=== PATIENT | male | born 1930 | race Caucasian/White ===

== ENCOUNTER 2017-02-13 13:59 | Inpatient (IN) ==
--- NOTE | 2017-02-13 14:28 | Emergency Department Note ---
Disposition Clinical Impression: Acute on chronic systolic CHF (congestive heart failure), NYHA class 3 COPD (chronic obstructive pulmonary disease) Qualifiers: COPD type: unspecified COPD Qualified Code(s): J44.9 - Chronic obstructive pulmonary disease, unspecified Disposition: Admitted As Inpatient Condition: Fair SOB HPI - General Chief Complaint: ED Shortness of Breath/Dyspnea Stated Complaint: Difficulty Breathing Time Seen by Provider: 02/13/17 14:27 Source: patient, EMS Mode of arrival: private vehicle Limitations: no limitations Nursing Notes Reviewed: Yes Vital Signs Reviewed: Yes - History of Present Illness Patient presents to the ED complaining of worsening shortness of breath and lower extremity edema. He was recently discharged from [facility] after an admission from 01/29-02/01 for a CHF exacerbation after presenting to this ED with similar symptoms. States he is always short of breath but it has been worsening over the past 2 weeks. States he noticed his lower extremity swelling was worse this morning as well. He has had an intermittent cough productive of white phlegm for several months. States his cough has not recently changed. He denies any sore throat, sneezing, nasal congestion or rhinorrhea. Denies any chest pain. He does report feeling intermittently hot and cold. No fever recorded at home. No abdominal pain, nausea, vomiting or diarrhea. He does report chronic constipation. States he has been compliant with all of his medications including duonebs at home every 4-6 hours. States he did use his nebulizer treatment this morning. He has home oxygen which he has been requiring intermittently for quite some time. States he has been wearing it approximately 85% of the time over the past 2 weeks. States he is sometimes able to sleep flat but other times sleeps in a recliner. He has had PND in the past but not recently. Since his last admission he has had a blood transfusion on February 06 of 2 units for worsening of his chronic anemia. Denies any blood in his stools or vomit. He is a [id number] smoker. EMS states that he had diffuse wheezing on their exam so they gave a duoneb treatment, 125 mg of IV Solu-Medrol and 40 mg of IV Lasix en route to the ED. On arrival here he had oxygen saturation of 95% on room air. - Related Data Home Medications Medication Instructions Recorded Confirmed Aspirin 81 mg PO DAILY 02/11/15 02/13/17 Docusate [Colace] 200 mg PO DAILY 02/11/15 02/13/17 Ipratropium/Albuterol Neb [Duoneb] 3 ml IH Q4H PRN 02/11/15 02/13/17 Metoprolol XL (24 HR) Succ [Toprol 50 mg PO DAILY 02/11/15 02/13/17 XL] Nitroglycerin [Nitrostat] 0.4 mg SL PRN PRN 02/11/15 02/13/17 Clopidogrel [Plavix] 75 mg PO DAILY 04/18/16 02/13/17 Doxazosin [Cardura] 1 mg PO DAILY 04/18/16 02/13/17 Furosemide [Lasix] 40 mg PO DAILY 04/18/16 02/13/17 Isosorbide MONOnitrate (24 HR) 60 mg PO QAM 11/03/16 02/13/17 [Imdur] Pantoprazole Sodium [Protonix] 40 mg PO DAILY 11/03/16 02/13/17 Buspirone HCl [Buspar] 5 mg PO TID 01/30/17 02/13/17 HYDROcodone/Acet 7.5/325 mg [[place] 1 tab PO Q8H PRN 01/30/17 02/13/17 7.5-325 mg] Sucralfate [Carafate] 1 gm PO BID 01/30/17 02/13/17 Temazepam [Restoril] 15 mg PO HS 01/30/17 02/13/17 Previous Rx's Medication Instructions Recorded Albuterol Sulfate [Proair Hfa] 1 puff IH Q4-6H PRN #1 inh 02/22/16 Folic Acid 1 mg PO DAILY #90 tablet 09/23/16 Allergies Allergy/AdvReac Type Severity Reaction Status Date / Time Penicillins Allergy Rash Verified 05/17/16 00:34 morphine AdvReac Anxiety Verified 05/17/16 00:34 Constitutional: Denies: fever, chills, weakness, weight change Eyes: Denies: eye pain, eye discharge, vision change ENT ED: Denies: ear pain, throat pain, dental pain, hearing loss, epistaxis, congestion, dysphagia Cardiovascular: Reports: orthopnea, edema. Denies: chest pain, palpitations, dyspnea on exertion, syncope Respiratory: Reports: cough, sputum production. Denies: dyspnea, wheezes, hemoptysis, stridor Gastrointestinal: Reports: constipation (chronic). Denies: abdominal pain, nausea, vomiting, diarrhea, hematemesis, melena, hematochezia Genitourinary: Denies: urgency, dysuria, frequency, hematuria Musculoskeletal: Denies: back pain, neck pain, arthralgia, myalgia Integumentary: Denies: rash, abrasion, lesions Neurological: Denies: headache, weakness, numbness, paresthesias, confusion, abnormal gait, vertigo Psychiatric: Denies: anxiety, depression, suicidal thoughts, homicidal thoughts , auditory hallucinations, visual hallucinations Endocrine: Denies: fatigue Hematological/Lymphatic: Denies: easy bleeding, easy bruising Allergic/Immunologic: Denies: facial swelling, urticaria Past Medical History - Past Medical History Medical history: Reports: aortic aneurysm, arthritis, COPD, coronary artery disease, DVT, GI bleed, hyperlipidemia, hypertension, renal disease, other Surgical history: Reports: appendectomy, carotid endarterectomy, cholecystectomy , hip replacement, knee replacement, other Psychiatric history: Reports: anxiety - Social History Smoking Status: Current every day smoker Smokeless Tobacco Status: No Alcohol use: Reports: none Drug use: Reports: none Physical Exam - General Limitations: no limitations General appearance: alert, in no apparent distress - Head Head exam: atraumatic, normocephalic, normal inspection - Eye Eye exam: Present: normal appearance, PERRL, EOMI - ENT ENT exam: normal exam, normal oropharynx, mucous membranes moist - Neck Neck exam: Present: normal inspection, full ROM, trachea midline - Chest Chest inspection: Present: normal inspection, symmetric chest wall rise - Respiratory Respiratory exam: Present: wheezes (scattered). Absent: accessory muscle use - Cardiovascular Cardiovascular exam: Present: regular rate, normal rhythm, normal heart sounds - Abdominal Exam Abdominal exam: Present: soft, Non-Tender, normal bowel sounds. Absent: tenderness, distention, guarding, rebound, rigidity - Extremities Exam Extremities exam: Present: normal inspection, full ROM, pedal edema (3+ bilaterally to knees). Absent: tenderness - Back Exam Back exam: Present: normal inspection, full ROM. Absent: tenderness - Neurological Exam Neurological exam: Present: alert, oriented X3 - Psychiatric Psychiatric exam: Present: normal affect, normal mood - Skin Skin exam: Present: warm, dry, intact, normal color Course Course Narrative: Patient presents to the ED complaining of increasing shortness of breath and lower extremity edema. He has known history of advanced systolic heart failure with last EF from October showing an ejection fraction of 20-25% with severe systolic dysfunction according to records. He was just hospitalized 2 weeks ago for CHF exacerbation that was treated with aggressive IV diuresis. On exam he still has wheezing. He is mildly tachypneic with extended talking but can complete sentences. He does have lower extremity pitting edema. Will given additional nebulizer treatment, obtain chest x-ray and labs. EKG shows sinus tachycardia with a left bundle branch block that is unchanged from his last admission. I suspect primarily a CHF exacerbation with also a component of COPD exacerbation. - Reevaluation(s) Reevaluation #1: Chest x-ray again shows small bilateral pleural effusions. Laboratory studies show continued improvement in his hemoglobin is 7.6 compared to 6.5 prior to his last transfusion. Creatinine is slightly improved as well at 1.73 from 1.95. His BNP however is significantly higher 2142 compared to 1358 on last hospitalization. Troponin is elevated at 0.04 but again this is decreased from his last admission when he was 0.11. I feel this likely represents strain from his CHF as he has no chest pain or EKG changes. Patient is feeling slightly better regarding his breathing since his nebulizer treatment. Repeat respiratory exam shows only a few scattered wheezes at this time. Patient is experiencing again a CHF exacerbation and I feel that he would benefit from admission for aggressive IV diuresis. Patient and family updated on plan and are agreeable. Will contact the hospitalist on-call to discuss admission. Reevaluation #2: I spoke to the hospitalist on-call, Dr. Ivory, who has agreed to accept the patient. Time: 17:00 Vital Signs Temperature 98.0 F 02/13/17 14:01 Pulse Rate 102 02/13/17 14:01 Respiratory Rate 16 02/13/17 14:01 Blood Pressure 124/64 02/13/17 14:01 O2 Sat by Pulse Oximetry 96 02/13/17 14:01 Temperature 98.0 F 02/13/17 14:01 Pulse Rate 102 02/13/17 14:01 Respiratory Rate 16 02/13/17 14:01 Blood Pressure 124/64 02/13/17 14:01 O2 Sat by Pulse Oximetry 96 02/13/17 14:01 Oxygen Delivery Oxygen Delivery Room Air Shortness of Breath/Dyspnea - Differential Diagnosis Likely: acute exacerbation of chronic obstructive airways disease, congestive heart failure - Medical Records Medical records reviewed: Yes I reviewed the patient's medical records. - Lab Data Lab results reviewed: Yes I reviewed the patient's lab results. Result diagrams: 02/13/17 15:05 02/13/17 15:05 Lab Results 02/13/17 02/13/17 02/13/17 Range/Units 15:05 15:05 15:05 WBC 5.9 (4.3-11.1) K/mcL RBC 3.12 L (4.19-5.50) M/mcL Hgb 7.6 L (12.9-16.9) g/dL Hct 25.3 L (37.5-50.1) % MCV 81.1 L (83.0-100.0) fL MCH 24.4 L (28.0-33.3) pg MCHC 30.0 L (31.6-35.5) g/dL RDW 17.6 H (11.5-14.5) % Plt Count 185 (140-400) K/mcL MPV 11.2 (9.4-12.4) fL Immature Gran % 0.5 (0-4) % Seg Neutrophils % 85.7 % Lymphocytes % 4.3 % Monocytes % 6.1 % Eosinophils % 2.9 % Basophils % 0.5 % Neutrophils # 5.0 (1.6-8.9) K/mcL Lymphocytes # 0.3 L (0.6-4.6) K/mcL Monocytes # 0.4 (0.0-1.3) K/mcL Eosinophils # 0.2 (0.0-0.6) K/mcL Basophils # 0.0 (0.0-0.2) K/mcL Sodium 139 (136-145) mEq/L Potassium 3.1 L (3.5-4.5) mEq/L Chloride 103 (98-109) mEq/L Carbon Dioxide 21 (19-29) mEq/L BUN 22 (8-26) mg/dL Creatinine 1.73 H (0.72-1.25) mg/dL Est GFR ( Amer) 45 L (> 60) Est GFR (Non-Af Amer) 37 L (> 60) BUN/Creatinine Ratio 13 (6-26) Glucose 136 H (70-99) mg/dL Calculated Osmolality 293 (280-300) Calcium 8.9 (8.6-10.8) mg/dL Troponin I 0.04 H* (0-0.03) ng/mL B-Natriuretic Peptide (0-100) pg/mL 02/13/17 Range/Units 15:05 WBC (4.3-11.1) K/mcL RBC (4.19-5.50) M/mcL Hgb (12.9-16.9) g/dL Hct (37.5-50.1) % MCV (83.0-100.0) fL MCH (28.0-33.3) pg MCHC (31.6-35.5) g/dL RDW (11.5-14.5) % Plt Count (140-400) K/mcL MPV (9.4-12.4) fL Immature Gran % (0-4) % Seg Neutrophils % % Lymphocytes % % Monocytes % % Eosinophils % % Basophils % % Neutrophils # (1.6-8.9) K/mcL Lymphocytes # (0.6-4.6) K/mcL Monocytes # (0.0-1.3) K/mcL Eosinophils # (0.0-0.6) K/mcL Basophils # (0.0-0.2) K/mcL Sodium (136-145) mEq/L Potassium (3.5-4.5) mEq/L Chloride (98-109) mEq/L Carbon Dioxide (19-29) mEq/L BUN (8-26) mg/dL Creatinine (0.72-1.25) mg/dL Est GFR ( Amer) (> 60) Est GFR (Non-Af Amer) (> 60) BUN/Creatinine Ratio (6-26) Glucose (70-99) mg/dL Calculated Osmolality (280-300) Calcium (8.6-10.8) mg/dL Troponin I (0-0.03) ng/mL B-Natriuretic Peptide 2142 H (0-100) pg/mL - Radiology Data Radiology results reviewed: Yes I reviewed the patient's radiology results. - EKG Data EKG attestation: Yes I reviewed and interpreted this EKG. EKG shows normal: Reports: sinus rhythm Rate: Reports: tachycardia Rhythm: Reports: NSR [place]/QRS: Reports: LBBB Interpretation: Reports: no acute changes, unchanged when compared to prior tracing (date) (01/29/17)
[2017-02-13] MEDS ORDERED: Ipratropium/Albuterol Neb 3 ML IH ONE (14:52)
[2017-02-13 15:15] LABS: Basophils % 0.5 %; Eosinophils # 0.2 K/mcL (0.0-0.6); Eosinophils % 2.9 %; Hematocrit 25.3 % (37.5-50.1); Hemoglobin 7.6 g/dL (12.9-16.9); Immature Granulocytes % 0.5 % (0-4); Lymphocytes # 0.3 K/mcL (0.6-4.6); Lymphocytes % 4.3 %; Mean Corpuscular Hemoglobin 24.4 pg (28.0-33.3); Mean Corpuscular Volume 81.1 fL (83.0-100.0); Mean Platelet Volume 11.2 fL (9.4-12.4); Monocytes # 0.4 K/mcL (0.0-1.3); Monocytes % 6.1 %; Platelet Count 185 K/mcL (140-400); Red Blood Count 3.12 M/mcL (4.19-5.50); Red Cell Distribution Width 17.6 % (11.5-14.5); Segmented Neutrophils % 85.7 %
[2017-02-13 15:25] LABS: Calcium 8.9 mg/dL (8.6-10.8); Potassium 3.1 mEq/L (3.5-4.5)
[2017-02-13] MEDS ORDERED: Naloxone 0.4 MG/ML INJ IVP PRN ×2 (16:48→17:27)
[2017-02-13] MEDS ORDERED: Nitroglycerin 0.4 MG TAB.SUBL SL PRN (17:27)
[2017-02-13] MEDS: *HR* HYDROcodone/Acet 7.5/325 mg TABLET PO PRN (18:07)
[2017-02-13] MEDS: Sucralfate 1 GM TABLET PO SCH (19:52)
--- NOTE | 2017-02-13 20:40 | Internal Med History&Physical ---
Date of Encounter: 02/13/17 Time of Encounter: 20:40 Assessment and Plan (1) Acute congestive heart failure Current visit: Yes Status: Acute Patient has acute congestive heart failure with a prior history of paroxysmal atrial fibrillation and ischemic cardiopathy and multiple atherosclerotic vascular problems. His BNP is elevated above baseline. Chest ray shows congestive heart failure pattern. Troponin is chronically elevated. It is doubtful that he has had an acute NM. We will continue with diuresis, oxygen and supportive care. He is a DNR CCA, no intubation, CPR or defibrillation. Since this is his second hospital admission and past 12 days, and he failed outpatient treatment in the emergency room, felt improvement with blood transfusion as an outpatient, I would like to admit him to a full inpatient admission because I do not feel that he will be able to be discharged in the next 48 hours. We are nearing the first midnight and most likely he will be here 3-4 midnights. Qualifiers: Congestive heart failure type: combined Qualified Code(s): I50.41 - Acute combined systolic (congestive) and diastolic (congestive) heart failure (2) History of ischemic cardiomyopathy Current visit: Yes Status: Acute As above. Not a candidate for further intervention or surgery. Ranexa has been suggested in the past but he cannot afford that. (3) Acute exacerbation of chronic obstructive pulmonary disease (COPD) Current visit: Yes Status: Acute Acute exacerbation of his chronic COPD. He also continues to smoke a pack of cigarettes per day. He was given Solu-Medrol in the field. We will continue with nebulizer treatments and Solu-Medrol. He is not to have intubation. (4) Chronic blood loss anemia Current visit: Yes Status: Acute History history of chronic anemia and likely of GI source. He apparently has a history of angiodysplasia changes in his cecum. His current count is appropriate and will follow (5) Angiodysplasia of cecum Current visit: Yes Status: Acute (6) Chronic kidney disease Current visit: No Status: Chronic Chronic kidney disease and avoiding NSAIDs. His creatinine and kidney function today is actually improved. Continue to monitor. Qualifiers: Chronic kidney disease stage: stage 3 (moderate) Qualified Code(s): N18.3 - Chronic kidney disease, stage 3 (moderate) (7) CAD (coronary artery disease) Current visit: No Status: Chronic History of coronary artery disease and at this point not a candidate for intervention surgically. It is doubtful that he has had an acute NM. Qualifiers: Coronary Disease-Associated Artery/Lesion type: [place] artery [place] vs. transplanted heart: [place] heart Associated angina: with stable angina Qualified Code(s): I25.118 - Atherosclerotic heart disease of [place] coronary artery with other forms of angina pectoris (8) Elevated troponin Current visit: No Status: Acute Chronically elevated troponin. Likely from chronic renal disease. (9) Smoker Current visit: No Status: Acute Continues to smoke a pack answers per day. He will not have any in the hospital. Tobacco cessation has again been discussed. (10) DVT prophylaxis Current visit: No Status: Acute He is not a good candidate for aggressive anticoagulation because of his history of recurring anemia and GI bleed problems. We will try to incorporate sequential compression devices, RAYSHAWN hose and frequent and early ambulation Internal Medicine - H&P: HPI Chief complaint: "I could not stop coughing" Admitted From: Emergency Dept Plans for Post Hospital Care: Home History of present illness: Mr. Knowles is a 87 year old male with known history of triple-vessel disease, extensive peripheral basilar disease, cardiomyopathy with ejection fraction 20- 30% was seen in the emergency room for evaluation of cough and dyspnea. His found to have an elevated BNP over 1999, chest x-ray consistent with congestive heart failure and chronicly elevated troponin. He was given Solu-Medrol and breathing treatment in the field by the squad. Patient states that his biggest complaint is coughing and shortness of breath. He states basically it is dry and occasionally some white sputum is produced. Never any blood. He does continue to smoke a pack cigarettes per day as he has for 72 years. He denies any cardiac type chest pain, palpitations or irregular heartbeat sensation. He states he is not sure that he ever got better when he was discharged from [place] just 12 days ago on 02/01/17. He was treated as an outpatient for anemia with a unit of blood just under a week ago. He has a history of chronic recurring anemia likely from GI source. He has been having swelling in his lower extremities, the left worse than the right. He has been sitting in the recliner all night long because cannot lie down flat because of dyspnea as well as arm and shoulder pain. After admission his biggest complaint is continued cough and dry throat. He denies a cardiac type chest pain or palpitations. Past Med Surg Social Fam HX - Past Medical History Medical history: aortic aneurysm, arthritis, atrial fibrillation (Paroxysmal atrial fibrillation), cardiomyopathy (Ischemic cardiomyopathy with ejection fraction 20-30%), CHF (History of congestive heart failure reportedly in the past), COPD, coronary artery disease, DVT, GI bleed (He has chronic anemia and recurring episodes requiring transfusions), hyperlipidemia, hypertension, renal disease, other Psychiatric history: anxiety - Past Surgical History Surgical History: appendectomy, carotid endarterectomy (Right carotid endarterectomy), cholecystectomy, hip replacement, knee replacement, LE Bypass, vascular surgery (Abdominal aortic aneurysm repair, bilateral carotid endarterectomies, aortofemoral bypass surgeries) - Social History Smoking Status: Current every day smoker Packs per day: 1 pack per day, he has smoked since age 15 therefore 70 years Smokeless Tobacco Status: No Alcohol use: none Drug use: none Occupational status: previously employed (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) Activity Level: Independent ambulation Recent Out of Country Travel Within the Last 8 Weeks: No Exposure or Possible Exposure to Illness During Travel: No - Family History Father Twin of Family Member: Yes, Fraternal Living Status: Age at : 72 Cause of : Lung disease, diabetes and cancer Hx Family Cardiac Disorders: Yes Hx Family Respiratory Disorders: Yes Hx Family Cancer: Yes Hx Family GI Disorders: No Hx Family Endocrine Disorder: No Hx Family Neuromuscular Disorders: No Hx Family Neurologic Disorders: No Hx Family HEENT Disorders: No Hx Family Autoimmune Disorders: No Mother Living Status: Age at : 99 Cause of : Hypertension and cancer Internal Medicine - H&P: Meds Aspirin 81 mg PO DAILY 02/11/15 [History] Docusate [Colace] 200 mg PO DAILY 02/11/15 [History] Ipratropium/Albuterol Neb [Duoneb] 3 ml IH Q4H PRN 02/11/15 [History] Metoprolol XL (24 HR) Succ [Toprol XL] 50 mg PO DAILY 02/11/15 [History] Nitroglycerin [Nitrostat] 0.4 mg SL PRN PRN 02/11/15 [History] Albuterol Sulfate [Proair Hfa] 1 puff IH Q4-6H PRN #1 inh 02/22/16 [Rx] Clopidogrel [Plavix] 75 mg PO DAILY 04/18/16 [History] Doxazosin [Cardura] 1 mg PO DAILY 04/18/16 [History] Furosemide [Lasix] 40 mg PO DAILY 04/18/16 [History] Folic Acid 1 mg PO DAILY #90 tablet 09/23/16 [Rx] Isosorbide MONOnitrate (24 HR) [Imdur] 60 mg PO QAM 11/03/16 [History] Pantoprazole Sodium [Protonix] 40 mg PO DAILY 11/03/16 [History] Buspirone HCl [Buspar] 5 mg PO TID 01/30/17 [History] HYDROcodone/Acet 7.5/325 mg [[place] 7.5-325 mg] 1 tab PO Q8H PRN 01/30/17 [ History] Sucralfate [Carafate] 1 gm PO BID 01/30/17 [History] Allergies Penicillins Allergy (Verified 05/17/16 00:34) Rash morphine Adverse Reaction (Verified 05/17/16 00:34) Anxiety - Constitutional Constitutional: lethargy, weakness, no chills, no excessive sweating, no fever(s ), no falls - EENT Eyes: no change in vision, no loss of vision Ears: decreased hearing (He is hard of hearing chronically), no ear discharge, no ear pain Nose, mouth and throat: dry mouth, sore throat, no mouth lesions, no neck mass - Cardiovascular Cardiovascular ROS IM: dyspnea, dyspnea on exertion, orthopnea, no chest pain, no irregular heart rhythm, no lightheadedness - Respiratory Respiratory: dyspnea on exertion, wheezing, chest congestion, excessive phlegm production, no hemoptysis, no pain on inspiration - Gastrointestinal Gastrointestinal: no change in bowel habits, no change in stool character, no constipation, no diarrhea, no hematochezia, no melena, no nausea, no vomiting - Genitourinary Genitourinary ROS male: urinary hesitancy, no urinary incontinence, no urinary urgency - Musculoskeletal Additional comments: His biggest musculoskeletal complaint is pain starting in the palm of his right hand going up to his anterior shoulder. He thinks is from carpal tunnel syndrome and he has had surgery before. He has had right shoulder replacement in the past. - Neurological Neurological ROS: confusion (He had confusion during his last hospitalization at [place]), paresthesias (Review of her Coumadin from the palm to the shoulder), no dizziness, no focal weakness, no frequent falls - Psychiatric Psychiatric: no hallucinations, no suicidal ideation - Constitutional Vitals: Temp Pulse Resp BP Pulse Ox 97.5 F L 112 18 119/67 96 02/13/17 18:50 02/13/17 18:50 02/13/17 18:50 02/13/17 18:50 02/13/17 18:50 General appearance: Present: cachectic, A&O X 3, answers questions appropriately Exam: Patient in moderate distress. Recurring cough and has audible wheezing. Sits forward in tripod positioning. - Eye Eye exam: Present: EOMI. Absent: scleral icterus - ENT ENT exam: Present: mucous membranes moist, TM's normal bilaterally (Right ear canal obscured with cerumen). Absent: normal exam (Upper plate of dentures. None below.) - Neck Neck exam general surgery: Absent: lymphadenopathy, tenderness, nuchal rigidity , thyromegaly Additional comments: No JVD. Cannot appreciate bruits. - Respiratory Additional comments: Diffuse inspiratory and expiratory wheezes. No localization or crackles. He is sitting forward to breathe. Audible expiratory wheezes heard - Cardiovascular Cardiovascular exam: Present: distant heart sounds, RRR, +S1, +S2. Absent: systolic murmur - GI/Abdominal GI/Abdominal exam: Present: soft, no peritoneal signs. Absent: mass, tenderness - Extremities Exam Additional comments: Edema of lower extremities, indentation at the top of the sock line. Slowed capillary refill. Adequate posterior tibial pulses. History of extremely tender over the right anterior and lateral shoulder area. He has pain if he touches the proximal palmar area of the right wrist with excruciating pain that radiates to her shoulder - Back Exam Back exam: Absent: vertebral tenderness - Neurological Exam Neurological exam: Present: alert, CN II-XII intact (Except he is hard of hearing), oriented X3, strengths equal and symetr throughout (As examined in bed ) Internal Med - H&P Results - Labs CBC & Chem 7: 02/13/17 15:05 02/13/17 15:05 Labs: Labs have been evaluated. He has chronic kidney disease with elevated creatinine. Chronically elevated troponin. Hemoglobin is chronically diminished, actually improved from his recent transfusion. Elevated BNP over 1999 - EKG Data EKG comments: 02/13/17 22:12 EKG shows left bundle-branch block, left axis deviation. In sinus rhythm. - Diagnostic Studies Chest x-ray Additional comments: Chest x-ray shows signs of increased pulmonary vasculature particularly in the lower lobes, left worse than the right. Some cephalization as well - VTE Reasons for not Prescribing Prophylaxis: Treatment not Indicated - Low risk for VTE
--- NOTE | 2017-02-13 20:56 | Electrocardiograph Report ---
[place] [id number] Test Date: 2017-02-13 Pat Name: CRISTA OCAMPO Department: 2000 Room: 115 Gender: Male Rn Transport: ER1 : 1930 Requested By: Amber Anthony Order Number: [id number] Reading MD: Adrian Joshi MD Measurements Intervals [place] Rate: 104 P: 26 MD: 145 QRS: -19 QRSD: 153 T: 133 QT: 394 QTc: 455 Interpretive Statements SINUS TACHYCARDIA LEFT BUNDLE BRANCH BLOCK Electronically Signed On 02-13-2017 20:54:44 EDT by Adrian Joshi MD
[2017-02-13] MEDS ORDERED: Temazepam 15 MG CAPSULE PO SCH (21:00)
[2017-02-14] MEDS: Ipratropium/Albuterol Neb 3 ML IH PRN ×4 (04:40→21:35)
[2017-02-14] MEDS: *HR* HYDROcodone/Acet 7.5/325 mg TABLET PO PRN ×3 (04:40→23:54)
[2017-02-14 05:38] LABS: Basophils % 0.2 %; Hematocrit 24.3 % (37.5-50.1); Hemoglobin 7.3 g/dL (12.9-16.9); Immature Granulocytes % 0.5 % (0-4); Lymphocytes # 0.3 K/mcL (0.6-4.6); Lymphocytes % 6.3 %; Mean Corpuscular Hemoglobin 24.7 pg (28.0-33.3); Mean Corpuscular Volume 82.1 fL (83.0-100.0); Mean Platelet Volume 11.3 fL (9.4-12.4); Monocytes # 0.2 K/mcL (0.0-1.3); Monocytes % 5.3 %; Neutrophils # 3.8 K/mcL (1.6-8.9); Platelet Count 168 K/mcL (140-400); Red Blood Count 2.96 M/mcL (4.19-5.50); Red Cell Distribution Width 17.5 % (11.5-14.5); Segmented Neutrophils % 87.7 %
[2017-02-14 05:49] LABS: Potassium 3.7 mEq/L (3.5-4.5)
--- NOTE | 2017-02-14 06:26 | Internal Med Progress Note ---
Date of Encounter: 02/14/17 Time of Encounter: 06:21 - Assessment and plan (1) Acute congestive heart failure Current Visit: Yes Status: Acute Assessment and plan: His acute congestive heart failure appears improved symptomatically. His troponin is now normal. BNP still elevated as one would expect. Follow-up chest x-ray will be done. Follow-up EKG will be done. Continue diuresis. Qualifiers: Congestive heart failure type: combined Qualified Code(s): I50.41 - Acute combined systolic (congestive) and diastolic (congestive) heart failure (2) History of ischemic cardiomyopathy Current Visit: Yes Status: Acute (3) Acute exacerbation of chronic obstructive pulmonary disease (COPD) Current Visit: Yes Status: Acute Assessment and plan: He thinks that he is improved. Still requiring frequent nebulizer treatments. We will continue IV steroids. Good oxygenation with supplemental oxygen (4) Chronic blood loss anemia Current Visit: Yes Status: Acute Assessment and plan: Continue to monitor his hemoglobin. It is dropped a bit but not to transfusion level. He may need to be transfused earlier if CHF worsens. (5) Angiodysplasia of cecum Current Visit: Yes Status: Acute (6) Chronic kidney disease Current Visit: No Status: Chronic Assessment and plan: Creatinine improved Qualifiers: Chronic kidney disease stage: stage 3 (moderate) Qualified Code(s): N18.3 - Chronic kidney disease, stage 3 (moderate) (7) CAD (coronary artery disease) Current Visit: No Status: Chronic Assessment and plan: No angina. Qualifiers: Coronary Disease-Associated Artery/Lesion type: [place] artery [place] vs. transplanted heart: [place] heart Associated angina: with stable angina Qualified Code(s): I25.118 - Atherosclerotic heart disease of [place] coronary artery with other forms of angina pectoris (8) Elevated troponin Current Visit: No Status: Resolved Assessment and plan: It is now normal. He has a chronically elevated troponin. Do not need to continue monitoring (9) Smoker Current Visit: No Status: Acute (10) DVT prophylaxis Current Visit: Yes Status: Acute Assessment and plan: Continues with SCDs and elastic stockings - Subjective Interval history: Patient states that he did fairly well through the night. He required 2 breathing treatments though which is more than his usual. He says he is starting the day well. He had a replacement of the Lidoderm patch on his right shoulder and he states that is doing a good job now. He denies any cardiac type chest pain, palpitations, no nausea or vomiting. No lower extremity swelling or pain. He thinks his breathing is much better today. - Constitutional Vitals: Temp Pulse Resp BP Pulse Ox 98 F 111 18 107/68 99 02/14/17 04:00 02/14/17 04:00 02/14/17 04:00 02/14/17 04:00 02/14/17 04:00 General appearance: Present: A&O X 3, no acute distress, answers questions appropriately - Respiratory Respiratory exam: Present: decreased breath sounds Additional comments: Scattered intermittent expiratory wheezes. I do not hear the audible wheezing without stethoscope as I did last night. Diminished breath sounds at the bases. No definite crackles. No orthopnea. - GI/Abdominal GI/Abdominal exam: Present: soft, no peritoneal signs. Absent: tenderness - Extremities Exam Extremities exam: Absent: calf tenderness, pedal edema, tenderness Additional comments: He has his SCDs on. Elastic stockings in place. No calf tenderness. No edema noted. His right shoulder is nontender on gentle palpation today. Internal Medicine: Result - Labs CBC & Chem 7: 02/14/17 05:20 02/14/17 05:20 Labs: Short CBC 02/14/17 Range/Units 05:20 WBC 4.3 (4.3-11.1) K/mcL Hgb 7.3 L (12.9-16.9) g/dL Hct 24.3 L (37.5-50.1) % Plt Count 168 (140-400) K/mcL Neutrophils # 3.8 (1.6-8.9) K/mcL BMP 02/14/17 05:20 Sodium 140 Potassium 3.7 Chloride 103 Carbon Dioxide 21 BUN 24 Creatinine 1.67 H Glucose 131 H Calcium 9.0 Cardiac Enzymes 02/14/17 Range/Units 05:20 Troponin I 0.03 (0-0.03) ng/mL His white blood cell count is normal. His hemoglobin is down a bit to 7.3. History of troponin is normal range now. Creatinine improved. - VTE Reasons for not Prescribing Prophylaxis: Treatment not Indicated - Low risk for VTE Consult Discharge Plan - Plan Referrals: Esvin Combs CNP [Primary Care Provider] -
[2017-02-14] MEDS: Isosorbide MONOnitrate (24 HR) 60 MG TAB.ER.24H PO SCH (08:59)
[2017-02-14] MEDS: Aspirin 81 MG TAB.CHEW PO SCH (08:59)
[2017-02-14] MEDS: methylPREDNISolone 125 MG/2 ML VIAL IVP SCH ×3 (08:59→23:54)
[2017-02-14] MEDS: Folic Acid 1 MG TABLET PO SCH (09:00)
[2017-02-14] MEDS: Pregabalin 50 MG CAPSULE PO SCH ×2 (09:00→21:34)
[2017-02-14] MEDS: Sucralfate 1 GM TABLET PO SCH ×2 (09:00→21:34)
[2017-02-14] MEDS: Metoprolol XL (24 HR) Succ 50 MG TAB.ER.24H PO SCH (09:00)
--- NOTE | 2017-02-14 16:04 | Electrocardiograph Report ---
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
--- NOTE | 2017-02-14 16:18 | Event Note ---
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 He continues to do well. He says is much improved. His breathing is better. He asked about using prednisone as he has before, I told him he is getting IV Solu-Medrol which is the same type of medication. He denies a cardiac type chest pain. His breathing is better. He denies any aches or pains other than intermittent right upper extremity "shooting" transient somewhat positional pains as he has had previously. His lungs show diminished breath sounds, intermittent end expiratory wheeze, snoring type respirations at the lower bases. His chest x-ray looks improved especially the right base. His labs look stable except his hemoglobin went from 7.7 down to 7.3. He does not have audible wheezing now. He is talkative and in no distress. His son Brady and other family members are present. We talked about his poor prognosis, his cardiac disease, his respiratory disease and his continued smoking. We talked about expectations for the future as well. He is happy that the patches help his shoulder pain, but he states it only lasts 4-6 hours. He is talking about his [place] type patches. 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 I told him to leave on for 12 hours, then take it off for 12 hours. He can use his own patches OTC when necessary as well. I also have started Lalit to see if that will help his pain which appears to be neuropathic.
[2017-02-14] MEDS: Furosemide 40 MG/4 ML VIAL IVP SCH (16:32)
[2017-02-15] MEDS: Ipratropium/Albuterol Neb 3 ML IH PRN ×3 (04:45→22:41)
[2017-02-15 05:25] LABS: Hematocrit 25.3 % (37.5-50.1); Hemoglobin 7.5 g/dL (12.9-16.9); Immature Granulocytes % 0.8 % (0-4); Lymphocytes # 0.2 K/mcL (0.6-4.6); Lymphocytes % 4.6 %; Mean Corpuscular HGB Conc 29.6 g/dL (31.6-35.5); Mean Corpuscular Volume 80.8 fL (83.0-100.0); Mean Platelet Volume 11.6 fL (9.4-12.4); Monocytes # 0.1 K/mcL (0.0-1.3); Monocytes % 2.1 %; Neutrophils # 4.8 K/mcL (1.6-8.9); Platelet Count 179 K/mcL (140-400); Red Blood Count 3.13 M/mcL (4.19-5.50); Red Cell Distribution Width 17.6 % (11.5-14.5); Segmented Neutrophils % 92.5 %
[2017-02-15 05:34] LABS: Calcium 9.3 mg/dL (8.6-10.8); Potassium 4.1 mEq/L (3.5-4.5)
[2017-02-15] MEDS: *HR* HYDROcodone/Acet 7.5/325 mg TABLET PO PRN ×2 (08:01→18:45)
[2017-02-15] MEDS: Sucralfate 1 GM TABLET PO SCH ×2 (08:01→22:41)
[2017-02-15] MEDS: Aspirin 81 MG TAB.CHEW PO SCH (08:01)
[2017-02-15] MEDS: Folic Acid 1 MG TABLET PO SCH (08:01)
[2017-02-15] MEDS: Isosorbide MONOnitrate (24 HR) 60 MG TAB.ER.24H PO SCH (08:01)
[2017-02-15] MEDS: Metoprolol XL (24 HR) Succ 50 MG TAB.ER.24H PO SCH (08:02)
[2017-02-15] MEDS: Pregabalin 50 MG CAPSULE PO SCH ×2 (08:08→22:41)
[2017-02-15] MEDS: methylPREDNISolone 125 MG/2 ML VIAL IVP SCH ×2 (08:43→17:18)
[2017-02-15] MEDS: Furosemide 40 MG/4 ML VIAL IVP SCH ×2 (08:43→17:18)
--- NOTE | 2017-02-15 13:15 | Internal Med Progress Note ---
Date of Encounter: 02/15/17 Time of Encounter: 13:13 - Assessment and plan (1) Acute congestive heart failure Current Visit: Yes Status: Acute Assessment and plan: Clinically he is showing improvement. Less dyspnea, pulmonary status improved. No lower extremity edema. His weight has not come down. His BNP has peaked and is coming down. Continue same treatment. Increase activity level. Qualifiers: Congestive heart failure type: combined Qualified Code(s): I50.41 - Acute combined systolic (congestive) and diastolic (congestive) heart failure (2) History of ischemic cardiomyopathy Current Visit: Yes Status: Acute Assessment and plan: No angina. CHF improved. (3) Acute exacerbation of chronic obstructive pulmonary disease (COPD) Current Visit: Yes Status: Acute Assessment and plan: Prominent status appears to be improving. No audible wheezing now. On auscultation he has no significant wheezing. No orthopnea. We will try to increase his level of activity. He still gets some dyspnea when going to the toilet. Weaning the IV Solu-Medrol. (4) Chronic blood loss anemia Current Visit: Yes Status: Acute Assessment and plan: Hemoglobin is up just a bit. No obvious bleeding. (5) Angiodysplasia of cecum Current Visit: Yes Status: Acute (6) Chronic kidney disease Current Visit: No Status: Chronic Assessment and plan: His creatinine bumped up a bit. This is likely from his IV Lasix. We will follow. Qualifiers: Chronic kidney disease stage: stage 3 (moderate) Qualified Code(s): N18.3 - Chronic kidney disease, stage 3 (moderate) (7) CAD (coronary artery disease) Current Visit: No Status: Chronic Assessment and plan: No angina. Qualifiers: Coronary Disease-Associated Artery/Lesion type: [place] artery [place] vs. transplanted heart: [place] heart Associated angina: with stable angina Qualified Code(s): I25.118 - Atherosclerotic heart disease of [place] coronary artery with other forms of angina pectoris (8) Smoker Current Visit: No Status: Acute Assessment and plan: Offered nicotine patch. (9) DVT prophylaxis Current Visit: Yes Status: Acute - Subjective Interval history: Patient thinks that he is getting better. He denies any cardiac type chest pain. He states he still gets short of breath, but when he was asleep he was almost supine and I witnessed no respiratory problem. He still complains of the right periscapular/shoulder tender areas and intermittent shooting pains that seem to be positional. He does gets some short of breath when getting up to the toilet. O2 saturation 100% at 3 L. He had some dyspnea last night required increased oxygen supplement - Constitutional Vitals: Temp Pulse Resp BP Pulse Ox 97.6 F 96 16 106/74 100 02/15/17 11:00 02/15/17 11:00 02/15/17 11:00 02/15/17 11:00 02/15/17 11:00 General appearance: Present: A&O X 3, no acute distress, answers questions appropriately - Respiratory Additional comments: Diminished breath sounds throughout. Few snoring type respirations in the bases. No audible wheezing heard. No respiratory distress. No cough. - Cardiovascular Cardiovascular exam: Present: distant heart sounds, RRR, +S1, +S2. Absent: systolic murmur - GI/Abdominal GI/Abdominal exam: Present: soft. Absent: tenderness - Extremities Exam Extremities exam: Absent: calf tenderness, pedal edema Additional comments: SCDs are in place. Elastic stockings in place Internal Medicine: Result - Labs CBC & Chem 7: 02/15/17 05:05 02/15/17 05:05 Labs: Short CBC 02/15/17 Range/Units 05:05 WBC 5.2 (4.3-11.1) K/mcL Hgb 7.5 L (12.9-16.9) g/dL Hct 25.3 L (37.5-50.1) % Plt Count 179 (140-400) K/mcL Neutrophils # 4.8 (1.6-8.9) K/mcL BMP 02/15/17 05:05 Sodium 138 Potassium 4.1 Chloride 102 Carbon Dioxide 22 BUN 37 H D Creatinine 1.93 H Glucose 123 H Calcium 9.3 hemoglobin is up a little bit. Creatinine is up a little bit - VTE Reasons for not Prescribing Prophylaxis: Treatment not Indicated - Low risk for VTE Consult Discharge Plan - Plan Referrals: Esvin Combs CNP [Primary Care Provider] -
[2017-02-16] MEDS: *HR* HYDROcodone/Acet 7.5/325 mg TABLET PO PRN ×3 (02:51→23:27)
[2017-02-16] MEDS: Ipratropium/Albuterol Neb 3 ML IH PRN ×4 (02:51→22:36)
[2017-02-16 05:30] LABS: Hematocrit 23.8 % (37.5-50.1); Hemoglobin 7.3 g/dL (12.9-16.9); Immature Granulocytes % 0.9 % (0-4); Lymphocytes # 0.1 K/mcL (0.6-4.6); Lymphocytes % 1.8 %; Mean Corpuscular HGB Conc 30.7 g/dL (31.6-35.5); Mean Corpuscular Hemoglobin 24.5 pg (28.0-33.3); Mean Corpuscular Volume 79.9 fL (83.0-100.0); Mean Platelet Volume 11.5 fL (9.4-12.4); Monocytes # 0.3 K/mcL (0.0-1.3); Monocytes % 3.5 %; Neutrophils # 7.3 K/mcL (1.6-8.9); Platelet Count 171 K/mcL (140-400); Red Blood Count 2.98 M/mcL (4.19-5.50); Red Cell Distribution Width 17.9 % (11.5-14.5); Segmented Neutrophils % 93.8 %
[2017-02-16 05:39] LABS: Potassium 3.6 mEq/L (3.5-4.5)
[2017-02-16 05:47] LABS: Anisocytosis 1+ (Not Present); Platelet Estimate Normal (Normal); Poikilocytosis 1+ (Not Present)
[2017-02-16] MEDS: methylPREDNISolone 125 MG/2 ML VIAL IVP SCH (06:43)
[2017-02-16] MEDS: Furosemide 40 MG/4 ML VIAL IVP SCH (09:30)
[2017-02-16] MEDS: Isosorbide MONOnitrate (24 HR) 60 MG TAB.ER.24H PO SCH (09:30)
[2017-02-16] MEDS: Aspirin 81 MG TAB.CHEW PO SCH (09:30)
[2017-02-16] MEDS: Folic Acid 1 MG TABLET PO SCH (09:30)
[2017-02-16] MEDS: Sucralfate 1 GM TABLET PO SCH ×2 (09:30→22:36)
[2017-02-16] MEDS: Pregabalin 50 MG CAPSULE PO SCH ×2 (09:30→22:36)
[2017-02-16] MEDS: Metoprolol XL (24 HR) Succ 50 MG TAB.ER.24H PO SCH (09:30)
--- NOTE | 2017-02-16 12:34 | Internal Med Progress Note ---
Date of Encounter: 02/16/17 Time of Encounter: 12:32 - Assessment and plan (1) Acute congestive heart failure Current Visit: Yes Status: Acute Assessment and plan: Clinically and symptomatically he is improving. Lungs are more clear. No ankle edema. No significant dyspnea. We will back him down from his IV Lasix to by mouth to see if that holds him so he can go home soon. Also, his creatinine going up, we need to decrease his diuresis. Qualifiers: Congestive heart failure type: combined Qualified Code(s): I50.41 - Acute combined systolic (congestive) and diastolic (congestive) heart failure (2) History of ischemic cardiomyopathy Current Visit: Yes Status: Acute Assessment and plan: No angina. CHF improved. (3) Acute exacerbation of chronic obstructive pulmonary disease (COPD) Current Visit: Yes Status: Acute Assessment and plan: No audible wheezing. Respirations are easier. No coughing presently. Continue current treatment. Decreasing his IV Solu-Medrol. (4) Chronic blood loss anemia Current Visit: Yes Status: Acute Assessment and plan: Hemoglobin is staying in the mid 7 g range and will follow. No active bleeding noted. (5) Angiodysplasia of cecum Current Visit: Yes Status: Acute (6) Chronic kidney disease Current Visit: No Status: Chronic Assessment and plan: Acute kidney injury from overdiuresis in addition to his chronic kidney disease. We will back down his IV Lasix 40 mg twice a day to his usual 40 mg orally daily Qualifiers: Chronic kidney disease stage: stage 3 (moderate) Qualified Code(s): N18.3 - Chronic kidney disease, stage 3 (moderate) (7) CAD (coronary artery disease) Current Visit: No Status: Chronic Assessment and plan: No angina. Qualifiers: Coronary Disease-Associated Artery/Lesion type: [place] artery [place] vs. transplanted heart: [place] heart Associated angina: with stable angina Qualified Code(s): I25.118 - Atherosclerotic heart disease of [place] coronary artery with other forms of angina pectoris (8) Smoker Current Visit: No Status: Acute (9) DVT prophylaxis Current Visit: Yes Status: Acute - Subjective Interval history: "I feel better, I feel stronger ". He denies a cardiac type chest pain. He thinks his breathing is better. Is getting to and from the toilet better with standby assistance now with less dyspnea. His appetite is good. He still has the right posterior scapular pain with trigger points, but the patches are working fairly well according to him. - Constitutional Vitals: Temp Pulse Resp BP Pulse Ox 97.3 F L 94 18 106/56 99 02/16/17 11:56 02/16/17 11:56 02/16/17 11:56 02/16/17 11:56 02/16/17 11:56 General appearance: Present: A&O X 3, no acute distress, answers questions appropriately Exam: He looks so much better today. He is sitting up at the edge the bed dressed in pajamas and is eating his lunch. No audible wheezing or congestion. - Respiratory Additional comments: Decreased breath sounds throughout, and expiratory wheezes in the bases. No rhonchi. No respiratory distress. No audible wheezing - Cardiovascular Cardiovascular exam: Present: distant heart sounds, RRR, +S1, +S2. Absent: systolic murmur - GI/Abdominal GI/Abdominal exam: Present: soft. Absent: tenderness - Extremities Exam Extremities exam: Absent: calf tenderness, pedal edema, tenderness Additional comments: Is wearing his elastic stockings. No edema. Internal Medicine: Result - Labs CBC & Chem 7: 02/16/17 05:00 02/16/17 05:00 Labs: Short CBC 02/16/17 Range/Units 05:00 WBC 7.8 (4.3-11.1) K/mcL Hgb 7.3 L (12.9-16.9) g/dL Hct 23.8 L (37.5-50.1) % Plt Count 171 (140-400) K/mcL Neutrophils # 7.3 (1.6-8.9) K/mcL BMP 02/16/17 05:00 Sodium 137 Potassium 3.6 Chloride 101 Carbon Dioxide 22 BUN 53 H D Creatinine 2.10 H Glucose 124 H Calcium 9.0 Hemoglobin is stable some 0.3. Creatinine increasing with his diuresis. - VTE Reasons for not Prescribing Prophylaxis: Treatment not Indicated - Low risk for VTE Documentation of Mechanical Device: Graduated compression elastic hosiery Consult Discharge Plan - Plan Referrals: Esvin Combs, MEDICAL RESEARCHER [Primary Care Provider] -
[2017-02-17] MEDS: Ipratropium/Albuterol Neb 3 ML IH PRN ×2 (04:19→08:30)
[2017-02-17 05:47] LABS: Hematocrit 23.6 % (37.5-50.1); Hemoglobin 7.1 g/dL (12.9-16.9); Immature Granulocytes % 0.6 % (0-4); Lymphocytes # 0.5 K/mcL (0.6-4.6); Lymphocytes % 6.9 %; Mean Corpuscular HGB Conc 30.1 g/dL (31.6-35.5); Mean Corpuscular Hemoglobin 23.9 pg (28.0-33.3); Mean Corpuscular Volume 79.5 fL (83.0-100.0); Mean Platelet Volume 11.9 fL (9.4-12.4); Monocytes # 0.7 K/mcL (0.0-1.3); Monocytes % 9.6 %; Neutrophils # 5.6 K/mcL (1.6-8.9); Nucleated Red Blood Cells 0.3 /100 WBC (0); Platelet Count 160 K/mcL (140-400); Red Blood Count 2.97 M/mcL (4.19-5.50); Red Cell Distribution Width 17.7 % (11.5-14.5); Segmented Neutrophils % 82.9 %
[2017-02-17 06:01] LABS: Potassium 3.4 mEq/L (3.5-4.5)
[2017-02-17] MEDS: *HR* HYDROcodone/Acet 7.5/325 mg TABLET PO PRN (08:29)
[2017-02-17] MEDS: Pregabalin 50 MG CAPSULE PO SCH (08:29)
[2017-02-17] MEDS: Folic Acid 1 MG TABLET PO SCH (08:30)
[2017-02-17] MEDS: Isosorbide MONOnitrate (24 HR) 60 MG TAB.ER.24H PO SCH (08:30)
[2017-02-17] MEDS: Metoprolol XL (24 HR) Succ 50 MG TAB.ER.24H PO SCH (08:30)
[2017-02-17] MEDS: Sucralfate 1 GM TABLET PO SCH (08:30)
[2017-02-17] MEDS: Aspirin 81 MG TAB.CHEW PO SCH (08:30)
[2017-02-17] MEDS ORDERED: Furosemide 40 MG TABLET PO SCH (09:00)
[2017-02-17] MEDS ORDERED: MethylPREDNISolone 40 MG/ML VIAL IVP SCH (09:00)
--- NOTE | 2017-02-17 09:45 | Discharge Summary ---
Date of Encounter: 02/17/17 Time of Encounter: 09:42 - Discharge Diagnosis (1) Acute congestive heart failure Priority: Primary Status: Acute Comments: Patient is 87-year-old gentleman with known history of cardiac neuropathy and COPD was admitted with acute congestive heart failure and elevated BNP and acute [place] was ruled out on admission. He received intravenous Lasix and diuresed well. His pulmonary status improved nicely. We backed off on his diuresis as his creatinine started to increase. On day of discharge he had no pedal edema. His lungs showed continued COPD changes but no rales of CHF. He will be sent home on his usual dose of Lasix. Qualifiers: Congestive heart failure type: combined Qualified Code(s): I50.41 - Acute combined systolic (congestive) and diastolic (congestive) heart failure (2) History of ischemic cardiomyopathy Priority: Secondary Status: Acute (3) Acute exacerbation of chronic obstructive pulmonary disease (COPD) Priority: Secondary Status: Acute Comments: On admission patient also had exacerbation of COPD and had audible wheezing. He did receive Solu-Medrol intravenously as well as his continued oxygen. We wean down the steroid. On day of discharge he had no audible wheezing. He did have diminished breath sounds and mild large airway congestion. Prior to discharge he was ambulating in the hallway, maintaining his ADLs within the room. He feels like he is back to baseline. He was discharged on prednisone and will follow-up in the office. (4) Chronic blood loss anemia Priority: Secondary Status: Chronic Comments: Patient has chronic recurring anemia and numerous blood transfusions in the past. This is from GI loss from angiodysplasia type changes. His hemoglobin went as low as 7.1. He is not symptomatic from it the present time. We typically wait until his count is less than 7 for blood transfusion. We will recheck his hemoglobin on Monday. (5) Angiodysplasia of cecum Priority: Secondary Status: Acute (6) Chronic kidney disease Priority: Secondary Status: Chronic Comments: Patient has known chronic kidney disease. His creatinine bumped up a bit when we increased his Lasix intravenously. It is now improved back to baseline. We will follow as an outpatient Qualifiers: Chronic kidney disease stage: stage 3 (moderate) Qualified Code(s): N18.3 - Chronic kidney disease, stage 3 (moderate) (7) CAD (coronary artery disease) Priority: Secondary Status: Chronic Comments: Known history of coronary artery disease. He had no signs of an [place] or angina on admission. Qualifiers: Coronary Disease-Associated Artery/Lesion type: [place] artery [place] vs. transplanted heart: [place] heart Associated angina: with stable angina Qualified Code(s): I25.118 - Atherosclerotic heart disease of [place] coronary artery with other forms of angina pectoris (8) Smoker Priority: Secondary Status: Chronic Comments: The patient was continued to smoke prior to admission. I talked to him again about tobacco cessation. 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 It appears be neuropathic. It is intermittent and positional. He has had a shoulder replacement in the past. He has had carpal tunnel release in the past. At home he uses an [id number] patch with minimal relief. In the past he was on gabapentin but it was stopped because of confusion. During this hospital stay he had a trial of Lyrica and Lidoderm patch. I am not sure really worked. On day of discharge he is having exacerbation of that pain. We will try to continue that medicine as an outpatient but I would like to arrange evaluation by chronic pain med clinic as I feel he may benefit from a nerve block. - Discharge Medications Prescriptions: Lidocaine Patch [Lidoderm 5% patch] 1 each TP DAILY #30 predniSONE [PredniSONE] 20 mg PO DAILY #14 tablet Pregabalin [Lyrica] 50 mg PO BID #60 Home Medications: Aspirin 81 mg PO DAILY 02/11/15 [History] Docusate [Colace] 200 mg PO DAILY 02/11/15 [History] Ipratropium/Albuterol Neb [Duoneb] 3 ml IH Q4H PRN 02/11/15 [History] Metoprolol XL (24 HR) Succ [Toprol XL] 50 mg PO DAILY 02/11/15 [History] Nitroglycerin [Nitrostat] 0.4 mg SL PRN PRN 02/11/15 [History] Albuterol Sulfate [Proair Hfa] 1 puff IH Q4-6H PRN #1 inh 02/22/16 [Rx] Clopidogrel [Plavix] 75 mg PO DAILY 04/18/16 [History] Doxazosin [Cardura] 1 mg PO DAILY 04/18/16 [History] Furosemide [Lasix] 40 mg PO DAILY 04/18/16 [History] Folic Acid 1 mg PO DAILY #90 tablet 09/23/16 [Rx] Isosorbide MONOnitrate (24 HR) [Imdur] 60 mg PO QAM 11/03/16 [History] Pantoprazole Sodium [Protonix] 40 mg PO DAILY 11/03/16 [History] Buspirone HCl [Buspar] 5 mg PO TID 01/30/17 [History] HYDROcodone/Acet 7.5/325 mg [Olivia 7.5-325 mg] 1 tab PO Q8H PRN 01/30/17 [ History] Sucralfate [Carafate] 1 gm PO BID 01/30/17 [History] Lidocaine Patch [Lidoderm 5% patch] 1 each TP DAILY #30 02/17/17 [Rx] Pregabalin [Lyrica] 50 mg PO BID #60 02/17/17 [Rx] predniSONE [PredniSONE] 20 mg PO DAILY #14 tablet 02/17/17 [Rx] Allergies/Adverse Reactions: Allergies Penicillins Allergy (Verified 05/17/16 00:34) Rash morphine Adverse Reaction (Verified 05/17/16 00:34) Anxiety Procedures/tests Complete & Pending: Laboratory Results - last 24 hr 02/17/17 02/17/17 05:11 05:11 WBC 6.8 RBC 2.97 L Hgb 7.1 L Hct 23.6 L MCV 79.5 L MCH 23.9 L MCHC 30.1 L RDW 17.7 H Plt Count 160 MPV 11.9 Immature Gran % 0.6 Seg Neutrophils % 82.9 Lymphocytes % 6.9 Monocytes % 9.6 Eosinophils % 0.0 Basophils % 0.0 Neutrophils # 5.6 Lymphocytes # 0.5 L Monocytes # 0.7 Eosinophils # 0.0 Basophils # 0.0 Nucleated RBCs/100 WBC 0.3 H Sodium 138 Potassium 3.4 L Chloride 101 Carbon Dioxide 24 BUN 56 H Creatinine 1.88 H Est GFR ( Amer) 41 L Est GFR (Non-Af Amer) 34 L BUN/Creatinine Ratio 30 H Glucose 108 H Calculated Osmolality 302 H Calcium 9.0 Date of admission: 02/13/17 22:29 Primary care physician: Esvin Combs CNP Discharging clinician: Isaac Ivory Anticipated date of discharge: 02/17/17 - Patient Status Disposition: Home, Self-Care Condition: Good Functional capacity at discharge: independent ambulation Overall status at discharge: patient is progressing back to baseline - Discharge Instructions Follow Up With: Isaac Ivory MD [Partnered Physician] - - Diet and Activity Activity: increase activity as tolerated Diet: low salt diet Interval History: Patient has been doing well the past 24 hours. He maintains his usual oxygen. He has not had a chest pain. No orthopnea. He is having increase in his right upper extremity neuropathic type pain. We are arranging for him to see chronic pain specialist. Hospital course: Mr. Knowles is a 87 year old male was admitted with congestive heart failure and exacerbation of his COPD. Please see the above diagnoses Time spent discussing smoking cessation with patient: 3 to 10 minutes - Time Spent with Patient Total time spent providing and/or coordinating discharge services: - Constitutional Vitals: Temp Pulse Resp BP Pulse Ox 97.7 F 89 18 97/56 99 02/17/17 07:22 02/17/17 07:22 02/17/17 07:22 02/17/17 07:22 02/17/17 07:22 General appearance: Present: A&O X 3, no acute distress (No acute distress from a pulmonary point of view. He is having increased right upper extremity neuropathic pain), answers questions appropriately - Respiratory Additional comments: Patient has diminished breath sounds throughout which is chronic for him. He does have some chronic large airway congestion. No respiratory distress. No orthopnea - Cardiovascular Cardiovascular exam: Present: RRR, +S1, +S2. Absent: systolic murmur - Extremities Exam Extremities exam: Absent: calf tenderness, pedal edema Additional comments: Patient does have right upper extremity neuropathic type pain with trigger points in the posterior scapular area as well as the distal volar wrist. This appears to be positional. It comes and goes in waves. - VTE Reasons for not Prescribing Prophylaxis: Treatment not Indicated - Low risk for VTE Documentation of Mechanical Device: Graduated compression elastic hosiery
[2017-02-17 11:03] VITALS: BP 164/66
== END 2017-02-17 13:20 | disposition home or self-care (01) | DRG 291 ==
LOC: INPGRE 13:59 → EMEROOGRE 13:59 → INPGRE 17:23
PROVIDERS: ADMIT Family Medicine; ATTEND Family Medicine